=== PATIENT | female | born 1980 | race Hispanic/Latino ===

== ENCOUNTER 2018-01-02 14:39 | Emergency (ER) | payer MEDICAID, OTHER ==
[2018-01-02] MEDS ORDERED: IBUPROFEN 800 MG TAB ONE (16:04)
== END 2018-01-02 16:13 | disposition home or self-care (01) ==
LOC: EDH 14:39
DX: S63.501A Unspecified sprain of right wrist, initial encounter (principal); Z98.51 Tubal ligation status; W18.39XA Other fall on same level, initial encounter; Y93.89 Activity, other specified; Y92.89 Other specified places as the place of occurrence of the external cause; Y99.8 Other external cause status
CPT/HCPCS: 29125; 73090